=== PATIENT | male | born 1995 | race Caucasian/White ===

== ENCOUNTER 2022-07-11 00:25 | Inpatient (IN) | payer OTHER ==
[~2022-07-11] VITALS: Ht 170.2 cm; Wt 68.2 kg
[2022-07-11] MEDS ORDERED: ACETAMINOPHEN 325 MG TABLET PO PRN (01:15)
[2022-07-11] MEDS ORDERED: LORazepam 2 MG TABLET PO ONE (01:15)
[2022-07-11 01:31] LABS: COVID AG,FIA SOURCE NASOPHARYNGEAL
[2022-07-11 01:35] LABS: BASOPHILS % (AUTO) 0.3 % (0.0-2.0); EOSINOPHILS % (AUTO) 0.1 % (1.0-6.0); HEMATOCRIT 40.3 % (41-53); HEMOGLOBIN 13.9 g/dL (13.5-17.5); LYMPHOCYTES # (AUTO) 1.5 K/uL (1.0-4.8); LYMPHOCYTES % (AUTO) 24.2 % (22.0-44.0); MEAN CORPUSCULAR HEMOGLOBIN 31.6 pg (26.0-34.0); MEAN CORPUSCULAR HGB CONC 34.4 G/dL (31.0-37.0); MEAN CORPUSCULAR VOLUME 92 fL (80-100); MONOCYTES # (AUTO) 0.4 K/uL (0.1-1.0); MONOCYTES % (AUTO) 5.6 % (2.0-9.0); NEUTROPHILS # (AUTO) 4.4 K/uL (1.8-7.7); NEUTROPHILS % (AUTO) 69.8 % (40.0-70.0); PLATELET COUNT (AUTO) 135 K/uL (150-450); RED BLOOD CELL COUNT(AUTO) 4.39 MIL/uL (4.50-5.90); RED CELL DISTRIBUTION WIDTH 13.3 % (11.5-14.5)
[2022-07-11 01:42] LABS: ANION GAP 12 mmol/L (8-16); CALCIUM, TOTAL 9.7 mg/dL (8.8-10.5); CARBON DIOXIDE 28 mmol/L (22-29); CHLORIDE 102 mmol/L (98-107); CREATININE 0.77 mg/dL (0.60-1.30); GLUCOSE,RANDOM 97 mg/dL (70-110); POTASSIUM 3.7 mmol/L (3.5-5.1); SODIUM SERUM 142 mmol/L (136-145); UREA NITROGEN, BLOOD 10 mg/dL (7-18)
[2022-07-11 01:43] LABS: GLOMERULAR FILTR. RATE CALC > 60 mL/min (>60)
[2022-07-11 01:48] LABS: ALANINE AMINOTRANSFERASE 29 U/L (12-78); ALBUMIN 4.5 g/dL (3.4-5.0); ALKALINE PHOSPHATASE 67 U/L (46-116); ASPARTATE AMINOTRANSFERASE 33 U/L (15-37); BILIRUBIN,TOTAL 0.8 mg/dL (0.1-1.0); TOTAL PROTEIN, SERUM 7.8 g/dL (6.4-8.2)
[2022-07-11 11:46] VITALS: BP 127/54
[2022-07-11] MEDS ORDERED: LOPERAMIDE HCL 2 MG CAPSULE PO PRN (13:15)
[2022-07-11] MEDS ORDERED: DICYCLOMINE HCL 10 MG CAPSULE PO PRN ×2 (13:15→17:15)
[2022-07-11] MEDS ORDERED: LORazepam 2 MG/ML VIAL IVP PRN (13:15)
[2022-07-11] MEDS ORDERED: METOCLOPRAMIDE HCL 5 MG/ML 2 ML VIAL IVP PRN (13:15)
[2022-07-11 16:22] VITALS: BP 121/67
[2022-07-11] MEDS ORDERED: MAG HYDROX/AL HYDROX/SIMETH ES 30 ML SUSPENSION UDCUP PO PRN (17:15)
[2022-07-11] MEDS ORDERED: CloNIDine HCL 0.1 MG TABLET PO PRN (17:15)
[2022-07-11 20:10] VITALS: BP 130/78
[2022-07-11] MEDS: CloNIDine HCL 0.1 MG TABLET PO SCH (20:40)
[2022-07-11] MEDS ORDERED: TEMAZEPAM 15 MG CAPSULE PO SCH (21:00)
[2022-07-12] MEDS: CloNIDine HCL 0.1 MG TABLET PO SCH (06:18)
[2022-07-12 06:20] VITALS: BP 101/62
[2022-07-12] MEDS: HydrOXYzine PAMOATE 50 MG CAPSULE PO PRN ×2 (06:47→12:28)
[2022-07-12 08:04] VITALS: BP 107/57
[2022-07-12] MEDS ORDERED: LORazepam 2 MG/ML VIAL IM ONE (15:00)
[2022-07-12] MEDS ORDERED: HALOPERIDOL LACTATE 5 MG/ML VIAL IM ONE (15:00)
[2022-07-12] MEDS ORDERED: DiphenhydrAMINE HCL 50 MG/ML VIAL IM ONE (15:00)
[2022-07-12 15:38] VITALS: BP 100/54
[2022-07-12 15:50] VITALS: BP 104/57
[2022-07-12 20:00] VITALS: BP 94/61
[2022-07-12] MEDS: RisperiDONE 1 MG TABLET PO SCH (20:31)
[2022-07-13] MEDS: HydrOXYzine PAMOATE 50 MG CAPSULE PO PRN ×3 (01:01→20:48)
[2022-07-13 04:21] VITALS: BP 108/62
[2022-07-13 07:47] VITALS: BP 112/68
[2022-07-13] MEDS: SERTRALINE HCL 50 MG TABLET PO SCH (08:37)
[2022-07-13] MEDS: IBUPROFEN 600 MG TABLET PO PRN ×2 (08:37→14:40)
[2022-07-13] MEDS: RisperiDONE 1 MG TABLET PO SCH ×2 (08:37→20:08)
[2022-07-13 15:36] VITALS: BP 102/54
[2022-07-13 19:23] VITALS: BP 109/60
[2022-07-13] MEDS ORDERED: LORazepam 2 MG/ML VIAL ONE (21:09)
[2022-07-13] MEDS ORDERED: HALOPERIDOL LACTATE 5 MG/ML VIAL ONE (21:10)
[2022-07-13] MEDS ORDERED: LORazepam 2 MG/ML VIAL IM PRN (21:15)
[2022-07-13] MEDS: HALOPERIDOL LACTATE 5 MG/ML VIAL IM PRN (21:21)
[2022-07-13 22:30] VITALS: BP 109/60
[2022-07-14 04:55] VITALS: BP 123/72
[2022-07-14 08:01] VITALS: BP 112/69
[2022-07-14] MEDS: SERTRALINE HCL 50 MG TABLET PO SCH (08:04)
[2022-07-14] MEDS: RisperiDONE 1 MG TABLET PO SCH ×2 (08:04→20:38)
[2022-07-14] MEDS: HALOPERIDOL LACTATE 5 MG/ML VIAL IM PRN ×2 (13:28→21:38)
[2022-07-14] MEDS: LORazepam 2 MG/ML VIAL IVP PRN ×3 (13:29→22:51)
[2022-07-14 16:01] VITALS: BP 107/59
[2022-07-14 19:16] VITALS: BP 119/67
[2022-07-14 21:34] LABS: AMPHET/METH SCREEN,URINE NEGATIVE (NEGATIVE); BARBITURATE SCREEN, URINE NEGATIVE (NEGATIVE); BENZODIAZEPINES SCREEN,URINE NEGATIVE (NEGATIVE); CANNABINOID SCREEN,URINE NEGATIVE (NEGATIVE); COCAINE SCREEN,URINE NEGATIVE (NEGATIVE); METHADONE SCREEN, URINE NEGATIVE (NEGATIVE); OPIATE SCREEN,URINE NEGATIVE (NEGATIVE)
[2022-07-14 21:35] LABS: PHENCYCLIDINE SCREEN,URINE NEGATIVE (NEGATIVE)
[2022-07-14] MEDS: HydrOXYzine PAMOATE 50 MG CAPSULE PO PRN (22:24)
[2022-07-15] MEDS ORDERED: LORazepam 2 MG/ML VIAL IM ONE
[2022-07-15 05:53] VITALS: BP 125/62
[2022-07-15] MEDS: RisperiDONE 1 MG TABLET PO SCH (08:19)
[2022-07-15] MEDS: SERTRALINE HCL 50 MG TABLET PO SCH (08:19)
[2022-07-15 08:23] VITALS: BP 107/71
[2022-07-15] MEDS ORDERED: RISP1TAB48 PO (11:05)
[2022-07-15] MEDS ORDERED: SERT-158 PO (11:05)
[2022-07-15 15:25] VITALS: BP 133/72
== END 2022-07-15 17:05 | DRG 897 ==
LOC: EMS 00:31 → 6S 10:17
PROVIDERS: ADMIT Internal Medicine; ATTEND Internal Medicine
DX: F11.13 Opioid abuse with withdrawal (principal); R45.851 Suicidal ideations; F10.139 Alcohol abuse with withdrawal, unspecified; F15.90 Other stimulant use, unspecified, uncomplicated; F25.1 Schizoaffective disorder, depressive type; F17.210 Nicotine dependence, cigarettes, uncomplicated; Z20.822 Contact with and (suspected) exposure to COVID-19; F32.9 Major depressive disorder, single episode, unspecified; Z79.899 Other long term (current) drug therapy
CPT/HCPCS: 70450; 80053; 85025; 99285; G0480; J1200; J1630; J2060